=== PATIENT | male | born 1975 | race Hispanic/Latino ===

== ENCOUNTER 2021-04-28 12:22 | Emergency (ER) | payer SELFPAY ==
--- NOTE | ~2021-04-28 | US_ITS ---
EXAMINATION: US venous doppler [facility] EXAM DATE: 04/28/2021 14:44 INDICATION: lower distal left thigh pain. TECHNIQUE: Multiple grayscale, color flow and Doppler images of the left lower extremity deep venous system were obtained and reviewed. There is no prior study for comparison. FINDINGS: The left common femoral, femoral and profunda veins demonstrate normal color flow, respirat ory variation, augmentation and compressibility. Compressibility, color flow confirmed within the le ft popliteal, posterior tibial, peroneal, and greater saphenous veins. IMPRESSION: 1. No left lower extremity deep venous thrombosis. Reviewed, dictated and finalized at location A. LE MOLDER MACHINE
--- NOTE | ~2021-04-28 | US_ITS ---
EXAMINATION: US venous doppler [facility] EXAM DATE: 04/28/2021 14:44 INDICATION: left arm spasms, pain. TECHNIQUE: Multiple grayscale, color flow, Doppler sonographic images of the left upper extremity vei ns obtained by technologist. Compression was performed where able. There is no prior study for ryan ruby. FINDINGS: Left upper extremity: Jugular vein: ------------> Normal. Subclavian vein: --------> Normal. Axillary vein:------------> Normal. Brachial vein:-----------> Normal. Basilic vein: ------------> Normal. Cephalic vein: ----------> Normal. Radial vein: ------------> Normal. Ulnar vein: > Normal. IMPRESSION: No deep venous thrombosis of the left upper extremity. Reviewed, dictated and finalized at location A. GER PRODUCT DESIGN
--- NOTE | ~2021-04-28 | CT_ITS ---
EXAMINATION: CT brain wo con EXAM DATE: 04/28/2021 14:14 INDICATION: Left upper and lower limb weakness and spasming. TECHNIQUE: Spiral CT of the head was performed without contrast. Axial, coronal and sagittal images were reviewed. The dose-length product (DLP) for this examination was 605.33 mGy-cm. The exposure w as tailored according to patient size, and iterative reconstruction (ASIR) was used as additional dos e reduction technique. There is no prior study for comparison. FINDINGS: There is no acute intraparenchymal hemorrhage. No evidence of intraparenchymal brain mass lesion. No evidence of acute infarction. There is no mass effect or midline shift. The ventricles are normal in size. There are no extra-axial collections. There are no acute calvarial fractures. T he orbits are unremarkable. Soft tissue is unremarkable. The visualized sinuses and mastoid air cristian ls are well aerated. IMPRESSION: No acute intracranial findings. Reviewed, dictated and finalized at location A. MAINTENANCE SUPERVISOR
[2021-04-28 12:50] VITALS: BP 151/101; PULSE 103; RESP 18; TEMP 36.2; O2SAT 98
--- NOTE | 2021-04-28 13:59 | ECG_ITS ---
Measurements Intervals [place] Rate: 80 P: 61 TN: 152 QRS: 70 QRSD: 89 T: -20 QT: 395 QTc: 458 Interpretive Statements SINUS RHYTHM DELAYED PRECORDIAL R/S TRANSITION VOLTAGE CRITERIA FOR LVH MINIMAL Q WAVES- INFERIOR LEADS ST-T WAVE ABNORMALITY IN INFERIOR LEADS- CONSIDER ISCHEMIA ABNORMAL ECG Electronically Signed On 04-28-2021 14:19:00 JOB TRAINING SPECIALIST by Cristopher Burnette D.O.
[2021-04-28] MEDS: ASPIRIN 325 MG ENTERIC TABLET PO (14:15)
[2021-04-28 14:29] LABS: Basophils Absolute Auto 0.04 K/mm3 (0.00-0.10); Basophils Percent Auto 0.5 % (0.0-1.0); Eosinophils Absolute Auto 0.04 K/mm3 (0.02-0.50); Eosinophils Percent Auto 0.5 % (1.0-6.0); Hematocrit 44.4 % (40.0-54.0); Hemoglobin 15.8 g/dL (14.0-18.0); Immature Granulocyte Absolute 0.03 K/mm3 (0.00-0.00); Immature Granulocyte Percent A 0.3 % (0.0-0.0); Lymphocytes Absolute Auto 2.13 K/mm3 (1.10-4.50); Lymphocytes Percent Auto 24.7 % (18.0-42.0); Mean Corpuscular HGB Conc 35.6 g/dL (32.0-36.0); Mean Corpuscular Hemoglobin 33.3 pg (27.0-31.0); Mean Corpuscular Volume 93.5 fL (78.0-102.0); Mean Platelet Volume 10.5 fl (8.7-11.0); Monocytes Absolute Auto 0.75 K/mm3 (0.10-0.90); Monocytes Percent Auto 8.7 % (2.0-11.0); Neutrophils Absolute Auto 5.6 K/mm3 (1.7-7.2); Neutrophils Percent Auto 65.3 % (50.0-70.0); Platelet Count Result 222 K/mm3 (150-420); Red Blood Count 4.75 M/mm3 (4.70-6.10); Red Cell Distribution Width 12.1 % (11.6-14.4); White Blood Count 8.6 K/mm3 (4.8-10.8)
--- NOTE | 2021-04-28 14:38 | PC.NURSE ---
Report given to Leandro
[2021-04-28 14:43] LABS: Amphetamine Screen Urine Negative (Negative); Barbiturate Screen Urine Negative (Negative); Benzodiazepines Screen Urine Negative (Negative); Cannabinoid Screen Urine Negative (Negative); Cocaine Screen Urine Negative (Negative); Methadone Screen Urine Negative (Negative); Opiate Screen Urine Negative (Negative); Phencyclidine Screen Urine Negative (Negative)
[2021-04-28 14:46] LABS: Alanine Aminotransferase 48 U/L (16-63); Albumin Level 3.6 g/dL (3.4-5.0); Alkaline Phosphatase 114 U/L (46-116); Anion Gap 12 mmol/L (8-16); Aspartate Amino Transferase 30 U/L (15-37); Bilirubin,Total 1.9 mg/dL (0.00-1.00); Blood Urea Nitrogen 7 mg/dL (7-18); Calcium 8.8 mg/dL (8.5-10.1); Carbon Dioxide 26 mmol/L (21-32); Chloride 101 mmol/L (98-108); Estimated CRCL calculation 89 ml/min; Estimated Glomerular Filt Rate > 60; Glucose 99 mg/dL (70-99); Osmolality Calculated 286 mOsm/kg (285-295); Potassium 3.5 mmol/L (3.5-5.1); Sodium 139 mmol/L (136-145); Total Protein 7.9 g/dL (6.4-8.2); Troponin I 16.9 ng/L (0.00-60.4)
[2021-04-28 14:47] LABS: Ethanol < 3 mg/dL (0-6)
--- NOTE | 2021-04-28 16:53 | ED.UPPEXIN ---
HPI - Extremity Injury (Upper) General Chief Complaint: Extremity Injury, Upper Stated Complaint: pain in shoulder Time Seen by Provider: 04/28/21 12:25 Source: patient and RN notes reviewed Limitations: no limitations History of Present Illness HPI narrative: left upper and lower limb pain and spasms complaint: injury to: left and shoulder Onset (ago): day(s) (1) Severity: moderate Relieving factors: immobilization Exacerbating factors: movement of extremity Related Data Allergies Allergy/AdvReac Type Severity Reaction Status Date / Time No Known Allergies Allergy Verified 04/28/21 12:58 Review of Systems Review of Systems: All systems reviewed & are unremarkable except as noted in HPI and below Musculoskeletal: Musculoskeletal: Reports arthralgias PMFSH Past Medical History Medical History (Updated 05/14/21 @ 01:55 by Bj Sequeira MD) Arm pain, musculoskeletal Musculoskeletal pain of left thigh Exam Const: General: no acute distress and alert Nutritional Appearance: well nourished Orientation/consciousness: patient oriented x3 Limitations: no limitations HENMT: Head: normal to inspection Ears: external ears normal and TM's normal bilaterally General nose exam: Normal external nose present and Normal nares present Mouth: Yes lip normal and Yes moist mucous membranes Teeth and gingiva: dentition normal Eyes: Conjunctivae: conjunctivae normal Pupils: Equal, round and reactive pupils present EOM: EOMs intact bilaterally Neck: Neck: normal visual inspection and no lymphadenopathy Chest: Chest palpation & inspection: normal inspection of the chest Resp: Effort & Inspection: normal respiratory effort Auscultation: clear to auscultation bilaterally Cardio: Rate: regular rate Rhythm: regular rhythm GI: GI Palp: Yes Soft to palpation and No Tenderness to palpation present (GI) Auscultation: normal bowel sounds : General: Yes bladder normal to palpation and Yes no CVA tenderness Male General Exam: Yes normal external exam Back/Spine/Pelvis: Back: no CVA tenderness Skin: General skin exam: normal color Neuro: General: patient oriented x3, moves all extremities, no meningeal signs, no focal motor deficits and CN's II-XI intact bilaterally Extrem: General: normal to inspection and no pedal edema Other: minimally tender right shoulder with pain-ful ROM Psych: Appearance: grossly normal and well kempt Mental Status: mental status grossly normal Thought content: Yes Normal thought content present Course Course Emergency Course: Pt was less pain-ful in the ED. Reevaluation(s) Date: 04/28/21 Time: 13:22 Vital Signs Vital signs: Vital Signs Temperature 36.2 C L 04/28/21 12:50 Pulse Rate 103 H 04/28/21 12:50 Respiratory Rate 18 04/28/21 12:50 Blood Pressure 151/101 H 04/28/21 12:50 Pulse Oximetry 98 04/28/21 12:50 Temperature 36.2 C L 04/28/21 12:50 Pulse Rate 92 04/28/21 17:21 Respiratory Rate 16 04/28/21 17:21 Blood Pressure 154/97 H 04/28/21 17:21 Pulse Oximetry 96 04/28/21 17:21 MDM - Extremity Injury (Upper) Differential Diagnosis Differential diagnosis: Likely dislocation of shoulder and other (right shoulder pain) Medical Records Attestation: I reviewed the patient's medical records. Lab Data Attestation: I reviewed the patient's lab results. Result diagrams: 04/28/21 14:20 04/28/21 14:20 Labs: Lab Results 04/28/21 04/28/21 04/28/21 Range/Units 14:20 14:20 14:20 WBC 8.6 (4.8-10.8) K/mm3 RBC 4.75 (4.70-6.10) M/mm3 Hgb 15.8 (14.0-18.0) g/dL Hct 44.4 (40.0-54.0) % MCV 93.5 (78.0-102.0) fL MCH 33.3 H (27.0-31.0) pg MCHC 35.6 (32.0-36.0) g/dL RDW 12.1 (11.6-14.4) % Plt Count 222 (150-420) K/mm3 MPV 10.5 (8.7-11.0) fl Immature Gran % (Auto) 0.3 H (0.0-0.0) % Neut % (Auto) 65.3 (50.0-70.0) % Lymph % (Auto) 24.7 (18.0-42.0) % [place] % (Auto)
[2021-04-28 17:21] VITALS: BP 154/97; PULSE 92; RESP 16; O2SAT 96
== END 2021-04-28 17:20 | disposition home or self-care (01) ==
PROVIDERS: Emergency Provider Emergency Medicine
DX: M79.652 Pain in left thigh (principal); M79.602 Pain in left arm
CPT/HCPCS: 36415; 70450; 80053; 80307; 84484; 85025; 93005; 93971; 99283; 99284; A9270

== ENCOUNTER 2022-01-15 08:51 | Emergency (ER) | payer SELFPAY ==
--- NOTE | ~2022-01-15 | CT_ITS ---
EXAMINATION: CT abdomen pelvis wo con DATE: 01/15/2022 09:24 INDICATION: Right flank pain. Right lower quadrant abdominal pain. TECHNIQUE: Computed tomography (CT) of the abdomen and pelvis was performed without intravenous contr ast. Automated exposure control and iterative reconstruction technique were employed. The dose-length product was 471.69 mGy-cm. COMPARISON: None. FINDINGS: The visualized portions of the lung bases are clear without pneumonia or pleural effusion. The heart size is normal. No pericardial effusion. The liver, gallbladder, spleen, pancreas, adrenal glands, and kidneys are normal. There is no urolithiasis. There are no dilated loops of bowel. The ap pendix. There are changes of appendectomy. There are no pathologically enlarged lymph nodes. There is no free intraperitoneal fluid. There is mild thoracolumbar spondylosis. IMPRESSION: 1. No etiology for the patient's symptoms. No urolithiasis. Reviewed, dictated and finalized at location B.
--- NOTE | ~2022-01-15 | XR_ITS ---
EXAMINATION: XR chest 2V 01/15/2022 09:24 INDICATION: Cough with drainage PROCEDURE: 2 view chest COMPARISON: No prior studies for comparison. FINDINGS: The lungs are clear. The cardiomediastinal silhouette is within normal limits. There are no pleural effusions. There is no pneumothorax suspected. IMPRESSION: 1: NO ACUTE CARDIOPULMONARY DISEASE. Reviewed, dictated and finalized at location A.
[2022-01-15 08:55] VITALS: BP 151/100; PULSE 105; RESP 16; TEMP 36.3; O2SAT 99
[2022-01-15 09:18] LABS: Hematocrit 44.6 % (40.0-54.0); Hemoglobin 15.5 g/dL (14.0-18.0); Mean Corpuscular HGB Conc 34.8 g/dL (32.0-36.0); Mean Corpuscular Hemoglobin 31.9 pg (27.0-31.0); Mean Corpuscular Volume 91.8 fL (78.0-102.0); Mean Platelet Volume 10.7 fl (8.7-11.0); Platelet Count Result 273 K/mm3 (150-420); Red Blood Count 4.86 M/mm3 (4.70-6.10); Red Cell Distribution Width 12.3 % (11.6-14.4); White Blood Count 13.9 K/mm3 (4.8-10.8)
[2022-01-15 09:19] LABS: Add Urine Microscopic? NO; Appearance Urine Clear (Clear); Bilirubin Urine Negative (Negative); Blood Urine Negative (Negative); Color Urine Yellow (Yellow); Glucose Urine UA Negative (Negative); Ketones Urine Negative (Negative); Leukocyte Esterase Ur Negative LEU/UL (Negative); Nitrate Urine Negative (Negative); Protein Urine Negative (Negative); Specific Grav Ur 1.015 (1.010-1.020); Urobilinogen Urine 0.2 mg/dL (0.2-1.0)
--- NOTE | 2022-01-15 09:26 | ED.GENADULT ---
HPI - General Adult General Chief complaint: Unspecified Stated complaint: HEADACHE, CONGESTION, ABDOMINAL PAIN Time Seen by Provider: 01/15/22 08:58 History of Present Illness HPI narrative: Pt presents with complaints of nasal congestion, cough and right ear pain as well as right flank and right lower quadrant abdominal pain. The URI symptoms have been present for a week and the cough is productive of white sputum. Pt denies fever. Pt says the abd/flank pain has been presents for a couple of days. the pain is constant but waxes and wanes in severity. Pt denies urinary symptoms. Related Data Allergies Allergy/AdvReac Type Severity Reaction Status Date / Time No Known Allergies Allergy Verified 01/15/22 09:02 Review of Systems Review of Systems: All systems reviewed & are unremarkable except as noted in HPI and below PMFSH Past Medical History Medical History (Updated 01/15/22 @ 09:45 by Marcellus Caal III, DO) Arm pain, musculoskeletal Musculoskeletal pain of left thigh Exam Const: General: cooperative, healthy appearing, comfortable and no acute distress Nutritional Appearance: average body habitus Orientation/consciousness: patient oriented x3 Limitations: no limitations HENMT: Head: normal to inspection Ears: external ears normal, TM normal on the right (bulging slightly but not erythematous) and TM normal on the left Face/Nose/Sinus: Normal nasal mucous membranes and turbinates present Throat: posterior oropharynx normal Eyes: Conjunctivae: conjunctivae normal Pupils: Equal, round and reactive pupils present and Pupils normal by confrontation EOM: EOMs intact bilaterally Neck: Neck: normal visual inspection and full ROM Chest: Chest palpation & inspection: normal inspection of the chest Resp: Effort & Inspection: normal respiratory effort Auscultation: clear to auscultation bilaterally Cardio: Jugular venous distension: no JVD Rate: regular rate Rhythm: regular rhythm GI: Inspection: normal to inspection GI Palp: Yes Soft to palpation and Yes No hepatosplenomegaly present Auscultation: normal bowel sounds Back/Spine/Pelvis: Back: no CVA tenderness Skin: General skin exam: normal color, no rashes or lesions noted and turgor normal Neuro: General: patient oriented x3, moves all extremities and no focal motor deficits Speech: normal speech Motor exam (neuro): 5/5 motor strength present throughout Sensory Exam: normal sensation Extrem: General: normal to inspection and full ROM Psych: Appearance: grossly normal Speech and movement: Normal speech and movement present Affect: normal affect Thought process: Normal thought process present Thought content: Yes Normal thought content present Insight: Good insight present (Psych) Judgement: Good judgement present (Psych) Course Vital Signs Vital signs: Vital Signs Temperature 97.3 F L 01/15/22 08:55 Pulse Rate 105 H 01/15/22 08:55 Respiratory Rate 16 01/15/22 08:55 Blood Pressure 151/100 H 01/15/22 08:55 Pulse Oximetry 99 01/15/22 08:55 Oxygen Delivery Room Air 01/15/22 08:55 Temperature 97.3 F L 01/15/22 08:55 Pulse Rate 85 01/15/22 10:00 Respiratory Rate 16 01/15/22 10:00 Blood Pressure 158/99 H 01/15/22 10:00 Pulse Oximetry 100 01/15/22 10:00 Oxygen Delivery Room Air 01/15/22 10:00 Medical Decision Making Vital Signs Vital Signs: Vital Signs Temperature 97.3 F L 01/15/22 08:55 Pulse Rate 105 H 01/15/22 08:55 Respiratory Rate 16 01/15/22 08:55 Blood Pressure 151/100 H 01/15/22 08:55 Pulse Oximetry 99 01/15/22 08:55 Oxygen Delivery Room Air 01/15/22 08:55 Temperature 97.3 F L 01/15/22 08:55 Pulse Rate 85 01/15/22 10:00 Respiratory Rate 16 01/15/22 10:00 Blood Pressure 158/99 H 01/15/22 10:00 Pulse Oximetry 100 01/15/22 10:00 Oxygen Delivery Room Air 01/15/22 10:00 Lab Data Result diagrams: 01/15/22 09:11 01/15/22 09:11
[2022-01-15 09:33] LABS: Alanine Aminotransferase 40 U/L (16-63); Albumin Level 3.4 g/dL (3.4-5.0); Alkaline Phosphatase 126 U/L (46-116); Anion Gap 12 mmol/L (8-16); Aspartate Amino Transferase 23 U/L (15-37); Bilirubin,Total 0.3 mg/dL (0.00-1.00); Blood Urea Nitrogen 7 mg/dL (7-18); Calcium 8.9 mg/dL (8.5-10.1); Carbon Dioxide 25 mmol/L (21-32); Chloride 105 mmol/L (98-108); Estimated CRCL calculation 86 ml/min; Estimated Glomerular Filt Rate > 60; Glucose 145 mg/dL (70-99); Osmolality Calculated 295 mOsm/kg (285-295); Potassium 3.1 mmol/L (3.5-5.1); Sodium 142 mmol/L (136-145); Total Protein 7.4 g/dL (6.4-8.2)
[2022-01-15 09:45] LABS: Total Cells Counted 100
[2022-01-15 09:47] LABS: Neutrophils Percent Manual 77 % (46-73)
[2022-01-15 09:48] LABS: Lymphocytes Percent Manual 18 % (18-44); Monocytes Absolute Manual 0.69 K/mm3 (0.1-0.90); Monocytes Percent Manual 5 % (3-9); Platelet Estimate Adequate (Adequate)
[2022-01-15] MEDS: POTASSIUM CHLORIDE 20 MEQ TABLET 40 MEQ PO (09:52)
[2022-01-15 10:00] VITALS: BP 158/99; PULSE 85; RESP 16; O2SAT 100
== END 2022-01-15 10:00 | disposition home or self-care (01) ==
PROVIDERS: Emergency Provider Emergency Medicine
DX: J40 Bronchitis, not specified as acute or chronic (principal); J32.9 Chronic sinusitis, unspecified
CPT/HCPCS: 36415; 71046; 74176; 80053; 81003; 85025; 99284; A9270

== ENCOUNTER 2022-05-14 13:29 | Emergency (ER) | payer SELFPAY ==
--- NOTE | ~2022-05-14 | CT_ITS ---
EXAMINATION: CT lumbar spine wo con DATE: 05/14/2022 14:12 INDICATION: Left-sided low back pain. Fall. TECHNIQUE: Computed tomography (CT) of the lumbar spine was performed without intravenous contrast. A utomated exposure control and iterative reconstruction technique were employed. The dose-length produ ct was 404.92 mGy-cm. COMPARISON: None FINDINGS: There is 7 degrees dextrocurvature of thoracolumbar spine. There is mild chronic anterior w edging of T12 vertebral body. There is mildly decreased disc height at L2-L3 and L3-L4. There are fra ctures of the left L1 and L2 transverse processes. The following disc levels are specifically discuss ed: L1-L2: The disc does not extend beyond the endplate margin. There is no facet joint osteoarthritis. T here is no neural foraminal stenosis. There is no central canal stenosis. L2-L3: The disc is bulging. There is no facet joint osteoarthritis. There is mild bilateral neural fo raminal stenosis. There is mild central canal stenosis. L3-L4: The disc is bulging. There is mild left facet joint osteoarthritis. There is mild bilateral ne ural foraminal stenosis. There is mild central canal stenosis. L4-L5: The disc is bulging. There is mild right facet joint osteoarthritis. There is mild bilateral n eural foraminal stenosis. There is mild central canal stenosis. L5-S1: The disc is bulging. There is moderate right and mild left facet joint osteoarthritis. There i s no neural foraminal stenosis. There is mild central canal stenosis. IMPRESSION: 1. Acute fractures of the left L1 and L2 transverse processes. 2. Mild lumbar spondylosis. Reviewed, dictated and finalized at location A. OMA PHARMACY TECHNICIAN
[2022-05-14 13:41] VITALS: BP 130/83; PULSE 98; RESP 18; TEMP 36.6; O2SAT 97
--- NOTE | 2022-05-14 13:42 | ED.FALL ---
HPI - Fall General Chief Complaint: Back Pain/Injury Stated Complaint: Fall Time Seen by Provider: 05/14/22 13:42 Source: patient Mode of arrival: ambulatory Limitations: no limitations History of Present Illness HPI Narrative: 46-year-old male with prior musculoskeletal pain presents to the ER after a fall yesterday with -- low back pain/ left lumbar pain. the patient slipped on ice and fell on stairs. no head injury. No loss of consciousness. No other injuries noted MD complaint: fall Onset (ago): day(s) ( Fell yesterday) Fall from: standing Fall witnessed: no Place fall occurred: home Loss of consciousness: none Prolonged down time: no Symptoms prior to fall: none Context: tripped/slipped Quality: aching Associated symptoms (after fall): denies Related Data Allergies Allergy/AdvReac Type Severity Reaction Status Date / Time No Known Allergies Allergy Verified 05/14/22 13:52 Review of Systems Review of Systems: All systems reviewed & are unremarkable except as noted in HPI and below Constitutional: Constitutional: Reports as per HPI and Reports no additional constitutional complaints Eyes: Eyes: Reports as per HPI and Reports no additional eye complaints ENT: Reports system reviewed and no additional complaints, except as documented and Reports as per HPI Cardiovascular: Cardiovascular: Reports as per HPI and Reports no additional cardiovascular complaints Respiratory: Respiratory: Reports as per HPI, Reports no additional respiratory complaints and Reports cough Gastrointestinal: Gastrointestinal: Reports as per HPI and Reports no additional gastrointestinal complaints Genitourinary: Genitourinary: Reports no additional male genitourinary complaints and Reports as per HPI Musculoskeletal: Musculoskeletal: Reports no additional musculoskeletal complaints and Reports back pain Comments: pain in his lower back and left parasternal region. Integumentary/Breasts: Skin/Breast: Reports system reviewed and no additional complaints, except as docu and Reports as per HPI Neurologic: Reports system reviewed and no additional complaints, except as documented and Reports as per HPI Psychiatric: Psychiatric: Reports no additional psychiatric complaints and Reports as per HPI Endocrine: Endocrine: Reports no additional endocrine complaints and Reports as per HPI Hematologic/Lymphatic: Hematologic/Lymphatic: Reports no additional hematologic/lymphatic complaints and Reports as per HPI Allergic/Immunologic: Allergic/Immunologic: Reports no additional allergic/immunologic complaints and Reports as per HPI [facility] Past Medical History Medical History Arm pain, musculoskeletal Musculoskeletal pain of left thigh Exam Const: General: no acute distress Nutritional Appearance: thin Orientation/consciousness: patient oriented x3 Limitations: no limitations HENMT: Head: normal to inspection Ears: external ears normal Face/Nose/Sinus: Normal external nose present Face and sinus: normal facial exam Mouth: Yes Normal oral and palatal mucosa present Teeth and gingiva: dentition normal ( Extensive dental caries.) Throat: posterior oropharynx normal Eyes: Conjunctivae: conjunctivae normal Pupils: Equal, round and reactive pupils present EOM: EOMs intact bilaterally Direct Ophthalmoscopy: no photophobia Neck: Neck: normal visual inspection, no lymphadenopathy and no meningeal signs Chest: Chest palpation & inspection: normal inspection of the chest Resp: Effort & Inspection: normal respiratory effort Auscultation: diminished lung sounds Cardio: Rate: regular rate Rhythm: regular rhythm GI: GI Palp: Yes Soft to palpation Auscultation: normal bowel sounds Other: No tenderness/ rigidity / rebound. : General: Yes no CVA tenderness Back/Spine/Pelvis: Back: no CVA tenderness Other: Straight leg raising test is positive at 60? on the left si
--- NOTE | 2022-05-14 13:48 | PC.NURSE ---
Pain to left lower back
--- NOTE | 2022-05-14 13:49 | PC.NURSE ---
Pt c/o left lower back pain after mechanical fall yesterday morning. Pt able to ambulate with steady gait to exam room
[2022-05-14 14:41] VITALS: BP 126/90; PULSE 90; RESP 18; O2SAT 96
[2022-05-14] MEDS: ONDANSETRON HCL ODT 4 MG TABLET PO (15:28)
[2022-05-14] MEDS: HYDROmorphone HCL INJ (*CRX) 2 MG/ML VIAL 0.5 MG IM (15:28)
[2022-05-14 15:34] LABS: Add Urine Microscopic? YES; Appearance Urine Clear (Clear); Bilirubin Urine Negative (Negative); Blood Urine Negative (Negative); Color Urine Yellow (Yellow); Glucose Urine UA Negative (Negative); Ketones Urine Trace (Negative); Leukocyte Esterase Ur Negative LEU/UL (Negative); Nitrate Urine Negative (Negative); Protein Urine Negative (Negative); Urobilinogen Urine 0.2 mg/dL (0.2-1.0)
[2022-05-14 15:38] LABS: Bacteria Urine Trace /hpf; Mucus Urine Moderate /lpf; RBC Urine 0-2 /hpf (0-2); Squamous Epithelial Cell Urine Rare /hpf (Few); WBC Urine None seen /hpf (0-3)
[2022-05-14 16:14] VITALS: BP 169/91; PULSE 96; RESP 20; O2SAT 97
== END 2022-05-14 16:16 | disposition home or self-care (01) ==
PROVIDERS: Emergency Provider Internal Medicine Critical Care Medicine
DX: S32.019A Unspecified fracture of first lumbar vertebra, initial encounter for closed fracture (principal); S32.029A Unspecified fracture of second lumbar vertebra, initial encounter for closed fracture; W00.1XXA Fall from stairs and steps due to ice and snow, initial encounter; Y92.009 Unspecified place in unspecified non-institutional (private) residence as the place of occurrence of the external cause
CPT/HCPCS: 72131; 81001; 96372; 99284; A9270; J1170